=== PATIENT | female | born 1985 | race African-American/Black ===

== ENCOUNTER 2018-07-30 13:58 | Emergency (ER) | payer SELFPAY ==
[~2018-07-30] VITALS: Ht 157.5 cm; Wt 90.3 kg
[2018-07-30 14:13] VITALS: Ht 157.5 cm; Wt 90.3 kg
[2018-07-30 16:40] VITALS: BP 119/67
== END 2018-07-30 16:40 | disposition home or self-care (01) ==
LOC: ED 13:58
DX: J02.0 Streptococcal pharyngitis (principal)
CPT/HCPCS: J1100; J1885

== ENCOUNTER 2018-10-18 19:29 | Emergency (ER) | payer SELFPAY ==
[~2018-10-18] VITALS: Ht 157.5 cm; Wt 91.6 kg
[2018-10-18 19:32] VITALS: Ht 157.5 cm; Wt 91.6 kg
[2018-10-18 21:48] VITALS: BP 121/59
== END 2018-10-18 21:48 | disposition home or self-care (01) ==
LOC: ED 19:29
DX: S02.2XXA Fracture of nasal bones, initial encounter for closed fracture (principal); J45.909 Unspecified asthma, uncomplicated; Z88.1 Allergy status to other antibiotic agents; Z88.8 Allergy status to other drugs, medicaments and biological substances; W22.8XXA Striking against or struck by other objects, initial encounter; Y93.89 Activity, other specified; Y92.89 Other specified places as the place of occurrence of the external cause; Y99.8 Other external cause status